=== PATIENT | female | born 1980 | race Caucasian/White ===

== ENCOUNTER 2018-02-22 16:39 | Emergency (ER) | payer SELFPAY ==
--- NOTE | 2018-02-22 16:59 | ED ---
Throat Pain/Nasal Congestion - HPI Summary HPI Summary: 37-year-old female presents with right eye injury since Wednesday. She states that a metal bowl fell and struck under her right eye. She denies any loss consciousness. No dizziness. No change in vision. No photophobia. She has occasional nausea but no vomiting. She denies any foreign body in the eye. bowl did not break. She has ecchymosis under the right eye. Full range of motion of her eye. She has no medical conditions. She has been placing ice on the area. No other injury. - History of Current Complaint Chief Complaint: EDEyeProblem Time Seen by Provider: 02/22/18 16:45 - Allergies/Home Medications Allergies/Adverse Reactions: Allergies Allergy/AdvReac Type Severity Reaction Status Date / Time Sulfa (Sulfonamide Allergy Hives Verified 02/22/18 16:43 Antibiotics) Home Medications: Home Medications NK [No Home Medications Reported] 02/22/18 [History Confirmed 02/22/18] PMH/Surg Hx/FS Hx/Imm Hx Endocrine/Hematology History: Denies: Hx Anticoagulant Therapy Respiratory History: Denies: Hx Asthma Infectious Disease History: No Infectious Disease History: Denies: Traveled Outside the [place] in Last 30 Days - Family History Known Family History: Negative: Blood Disorder - Social History Substance Use Type: Reports: None Review of Systems Negative: Fever Positive: Other - facial pain Negative: Chest Pain Negative: Shortness Of Breath Positive: Nausea. Negative: Vomiting Positive: Headache All Other Systems Reviewed And Are Negative: Yes Physical Exam Triage Information Reviewed: Yes Vital Signs On Initial Exam: Initial Vitals Temp Pulse Resp BP Pulse Ox 98.1 F 78 16 122/78 99 02/22/18 16:41 02/22/18 16:41 02/22/18 16:41 02/22/18 16:41 02/22/18 16:41 Vital Signs Reviewed: Yes Appearance: Positive: Well-Appearing Head/Face: Positive: Other - ecchymosis under right eye Eyes: Positive: EOMI, LARRY, Conjunctiva Clear ENT: Positive: Normal ENT inspection, Pharynx normal, TMs normal Respiratory/Lung Sounds: Positive: Clear to Auscultation, Breath Sounds Present Cardiovascular: Positive: Normal, RRR Musculoskeletal: Positive: Normal Neurological: Positive: Normal Psychiatric: Positive: Normal Diagnostics - Vital Signs Vital Signs Temp Pulse Resp BP Pulse Ox 02/22/18 16:41 98.1 F 78 16 122/78 99 - Laboratory Lab Statement: Any lab studies that have been ordered have been reviewed, and results considered in the medical decision making process. - CT maxillary facial CT Interpretation: No Acute Changes CT Interpretation Completed By: Radiologist SHENA Course/Dx - Course Course Of Treatment: 37-year-old female presents with right eye injury since Wednesday. She states that a metal bowl fell and struck under her right eye. She denies any loss consciousness. No dizziness. No change in vision. No photophobia. She has occasional nausea but no vomiting. She denies any foreign body in the eye. bowl did not break. She has ecchymosis under the right eye. Full range of motion of her eye. She has no medical conditions. She has been placing ice on the area. No other injury. On exam has ecchymosis under her eye. Extraocular movements intact. Normal neuro exam. According to the [place] CT rules does not need any head imaging. got CT maxillaryfacial so make sure no fx. CT maxillary facial normal. Told placed ice on the area. Patient understands agrees the plan. - Differential Diagnoses Differential Diagnoses: Corneal Abrasion, Fracture, Other - hematoma - Diagnoses Provider Diagnoses: Black eye of right side Discharge - Sign-Out/Discharge Documenting (check all that apply): Patient Departure - Discharge Plan Condition: Good Disposition: HOME Patient Education Materials: Black Eye (ED) Referrals: Bandar Lee MD [Medical Doctor] - [facility] – [place], [place] [facility] [Outside] Additional Instructions: If develop any change in vision follow up with optho, a referral is provided apply ice Take Tylenol or ibuprofen every 6 hours as needed for pain Establish care with primary Return to ED if develop any new or worsening symptoms - Billing Disposition and Condition Condition: GOOD Disposition: Home
--- NOTE | 2018-02-22 17:23 | RAD ---
INDICATION: Right-sided eye injury. COMPARISON: There are no prior studies available for comparison. TECHNIQUE: Contiguous axial sections of the axial images of the facial bones were obtained and reconstructed in the coronal and sagittal planes. FINDINGS: Soft tissue swelling is noted anterior to the right orbit and maxilla. The globes appear intact. The taylor of the orbits and maxillary sinuses appear intact. The zygomatic arches appear intact. There is no evidence for a fracture of the mandible. The nasal bones appear intact. There is S-shaped deviation of the nasal septum which is moderate in degree which is convex toward the left side along its superior portion and toward the right along its inferior portion. The pterygoid plates appear intact. The paranasal sinuses appear clear. IMPRESSION: NO EVIDENCE OF FRACTURE.
[2018-02-22 18:39] VITALS: BP 122/77
== END 2018-02-22 17:35 | disposition home or self-care (01) ==
LOC: ED 16:39
DX: S00.11XA Contusion of right eyelid and periocular area, initial encounter (principal); W20.8XXA Other cause of strike by thrown, projected or falling object, initial encounter; Y92.9 Unspecified place or not applicable; R11.0 Nausea; R51 Headache
CPT/HCPCS: 70486; 99282